=== PATIENT | male | born 1985 | race Caucasian/White ===

== ENCOUNTER 2016-10-30 10:47 | Emergency (ER) | payer OTHER | END 2016-10-30 11:00 | disposition home or self-care (01) | LOC: ER 10:47 | DX: M70.22 Olecranon bursitis, left elbow (principal); F17.210 Nicotine dependence, cigarettes, uncomplicated; Z88.8 Allergy status to other drugs, medicaments and biological substances; Z88.0 Allergy status to penicillin | CPT/HCPCS: 99284 ==